=== PATIENT | male | born 1990 | race Two or more races ===

== ENCOUNTER 2024-10-28 03:47 | Emergency (ER) | payer OTHER ==
[~2024-10-28] VITALS: Ht 172.7 cm; Wt 84.0 kg
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
--- NOTE | 2024-10-28 05:29 | DVH ---
EXAM: XR Thoracic Spine, 3 Views CLINICAL INDICATION: Pain TECHNIQUE: Frontal, lateral and swimmer's views of the thoracic spine. COMPARISON: No relevant prior studies available. FINDINGS: VERTEBRAE: Unremarkable. No acute fracture. Normal alignment. DISC SPACES: No acute findings. No significant narrowing. SOFT TISSUES: Unremarkable. IMPRESSION: No acute fracture.
--- NOTE | 2024-10-28 05:30 | DVH ---
EXAM: XR Lumbosacral Spine, 2 or 3 Views CLINICAL INDICATION: Pain TECHNIQUE: Frontal and lateral views of the lumbar spine and sacrum. COMPARISON: No relevant prior studies available. FINDINGS: VERTEBRAE: Unremarkable. No acute fracture. Normal alignment. SACRUM/COCCYX: Unremarkable as visualized. No acute fracture. DISC SPACES: No acute findings. No significant narrowing. SOFT TISSUES: Unremarkable. IMPRESSION: No acute fracture.
[2024-10-28 05:35] VITALS: BP 125/69; PULSE 64; RESP 17; TEMP 98.3; O2SAT 98
[2024-10-28] MEDS: HYDROcodone-ACET 10/325MG TAB PO ONE (05:40)
[2024-10-28] MEDS: KETOROLAC TROMETH 60MG/2ML VIAL IM ONE (05:40)
[2024-10-28] MEDS ORDERED: METH4PAK PO (05:44)
[2024-10-28] MEDS ORDERED: TIZA-142 PO (05:44)
== END 2024-10-28 05:52 | disposition home or self-care (01) ==
LOC: ER 03:47 → EDBD 03:47 → ER 05:52
DX: S29.012A Strain of muscle and tendon of back wall of thorax, initial encounter (principal); S33.5XXA Sprain of ligaments of lumbar spine, initial encounter; V49.49XA Driver injured in collision with other motor vehicles in traffic accident, initial encounter; Y93.89 Activity, other specified; Y92.89 Other specified places as the place of occurrence of the external cause; Y99.8 Other external cause status
CPT/HCPCS: 72070; 72100; 96372; 99284; J1885